=== PATIENT | male | born 1950 | race Caucasian/White ===

== ENCOUNTER 2024-07-17 16:52 | Inpatient (IN) | payer MEDICARE ==
[~2024-07-17] VITALS: Ht 172.7 cm; Wt 83.9 kg
[2024-07-17 17:01] VITALS: PULSE 67; RESP 18; TEMP 98
[2024-07-17] MEDS ORDERED: SODIUM CHLORIDE FLUSH 10 ML SYR INJ PRN (17:15)
[2024-07-17] MEDS ORDERED: ONDANSETRON HCL INJ 2MG/ML 2ML 2 MG/ML VIAL IV PRN (17:15)
[2024-07-17 17:19] LABS: BASOPHILS % 0.2 % (0.0-1.0); EOSINOPHILS # (AUTO) 0.3 (0.0-0.4); EOSINOPHILS % 3.2 % (0.0-6.0); HEMATOCRIT 39.2 % (38.2-49.6); HEMOGLOBIN 13.1 g/dL (14.0-18.0); LYMPHOCYTES # (AUTO) 2.9 (1.0-3.2); LYMPHOCYTES % 30.2 % (18.0-39.1); MEAN CORPUSCULAR HEMOGLOBIN 30.8 pg (28-32); MEAN CORPUSCULAR HGB CONC 33.4 g/dL (31-35); MONOCYTES % 10.5 % (4.4-11.3); NEUTROPHILS # (AUTO) 5.4 (2.1-6.9); NEUTROPHILS % 55.6 % (38.7-80.0); PLATELET COUNT 261 x10e3/uL (140-360); RED BLOOD COUNT 4.26 x10e6/uL (4.3-5.7); RED CELL DISTRIBUTION WIDTH 12.5 % (11.7-14.4); WHITE BLOOD COUNT 9.64 x10e3/uL (4.8-10.8)
[2024-07-17 17:30] LABS: INR 0.95; PARTIAL THROMBOPLASTIN TIME 29.2 seconds (23.8-35.5); PROTHROMBIN TIME 13.3 seconds (11.9-14.5)
[2024-07-17 17:37] LABS: BILIRUBIN,URINE NEGATIVE (NEGATIVE); CLARITY,URINE CLEAR (CLEAR); COLOR,URINE YELLOW (YELLOW); GLUCOSE, URINE NEGATIVE (NEGATIVE); KETONES,URINE NEGATIVE (NEGATIVE); LEUKOCYTE ESTERASE ,URINE NEGATIVE (NEGATIVE); NITRITE,URINE NEGATIVE (NEGATIVE); PH,URINE 5.5 (5 - 7); PROTEIN,URINE DIPSTICK 1+ (NEGATIVE); URINE UROBILINOGEN 0.2 mg/dL (0.2 - 1)
[2024-07-17 17:41] LABS: ALBUMIN 3.3 g/dL (3.5-5.0); ALBUMIN/GLOBULIN RATIO 0.8 (0.8-2.0); ANION GAP 16.9 mmol/L (8-16); BILIRUBIN,TOTAL 0.3 mg/dL (0.2-1.2); CREATININE, SERUM 0.92 mg/dL (0.72-1.25); POTASSIUM 3.9 mmol/L (3.5-5.1); TOTAL PROTEIN 7.7 g/dL (6.5-8.1)
[2024-07-17 17:47] LABS: WBC,URINE (MAN) 0-5 /HPF (0-5)
[2024-07-17 17:48] LABS: BACTERIA,URINE FEW /HPF; EPITHELIAL CELLS,URINE RARE /LPF; MUCUS,URINE MANY (RARE)
[2024-07-17] MEDS ORDERED: MIDAZOLAM HCL 2 MG/2 ML VIAL ONE (18:20)
[2024-07-17] MEDS ORDERED: FENTANYL CITRATE/PF 100MCG/2 ML INJ ONE (18:20)
[2024-07-17 20:30] VITALS: BP 104/84; PULSE 80; RESP 18; TEMP 98.1; O2SAT 97
[2024-07-17] MEDS: FENTANYL CITRATE/PF 100MCG/2 ML INJ IV ONE ×2 (20:52→20:53)
[2024-07-17] MEDS: MIDAZOLAM HCL 2 MG/2 ML VIAL IV STA (20:52)
[2024-07-17 21:00] VITALS: BP 104/84; PULSE 80; RESP 18; TEMP 98.1; O2SAT 97
== END 2024-07-17 23:38 | disposition home or self-care (01) | DRG 826 ==
LOC: ER 18:03 → ERHOLD 18:08 → MED/SURG2 20:49
PROVIDERS: ADMIT Family Medicine; ATTEND Family Medicine
PROC: 0W9H3ZX Drainage of Retroperitoneum, Percutaneous Approach, Diagnostic (ICD-10-PCS; principal; 2024-07-17)
DX: C48.0 Malignant neoplasm of retroperitoneum (principal); K68.19 Other retroperitoneal abscess; G40.89 Other seizures; Z88.5 Allergy status to narcotic agent; I10 Essential (primary) hypertension; E78.5 Hyperlipidemia, unspecified; Z82.49 Family history of ischemic heart disease and other diseases of the circulatory system
CPT/HCPCS: 36415; 74470; 77012; 80053; 81001; 85025; 85610; 85730; 87040; 87070; 87071; 87075; 87086; 87116; 87205; 87206; 88112; 88305; 88342; 99284; C1769; J2250

== ENCOUNTER → 2024-07-17 | Outpatient (REF) | payer MEDICARE ==
[~2024-07-17] MED LIST: IOPAMIDOL 370 MG/ML 100 ML INFUS..BTL INJ ONE
[2024-07-17 15:49] LABS: CREATININE, SERUM 0.89 mg/dL (0.72-1.25)
== END ==
LOC: CT 15:19
PROVIDERS: ATTEND Family Medicine
DX: R10.31 Right lower quadrant pain (principal)
CPT/HCPCS: 36415; 74177; 82565; 84520; Q9967